=== PATIENT | male | born 2005 | race Caucasian/White ===

== ENCOUNTER 2024-09-11 00:40 | Emergency (ER) | payer SELFPAY ==
[~2024-09-11] VITALS: Ht 177.8 cm; Wt 108.0 kg
[2024-09-11 00:59] VITALS: TEMP 37.2; O2SAT 98
[2024-09-11] MEDS ORDERED: IBUP-2029 MT (01:43)
[2024-09-11] MEDS ORDERED: CEPH500C2 MT (01:43)
[2024-09-11 01:53] VITALS: BP 150/71; PULSE 80; RESP 18; O2SAT 100
== END 2024-09-11 01:53 | disposition home or self-care (01) ==
LOC: ER 00:40
DX: L03.317 Cellulitis of buttock (principal)
CPT/HCPCS: 99283